=== PATIENT | female | born 1995 | race Caucasian/White ===

== ENCOUNTER 2023-12-21 07:30 | Inpatient (IN) ==
[2023-12-21] MEDS ORDERED: OXYTOCIN 30 UNITS/NSS 30 UNITS/500 ML BAG IV PRN (08:49)
--- NOTE | 2023-12-21 09:02 | History & Physical Report ---
Date of Service December 21, 2023 Assessment & Plan (1) Encounter for induction of labor: Present on Admission?: Yes Plan admit to L and D Regular diet x2 then NPO/IV Fluids labs pain meds including epidural as the pt desires Cytotec 25 mcg then consider Pitocin eventually , AROM to augment labor Admission and Anticipated Discharge Date Admission Date: December 21, 2023 History of Present Illness Chief Complaint: pt 28 yr old G1 IUP at 40 weeks 4 days came in for induction of labor for postdate . pt denies regular uterine contractions, vaginal bleeding, leaking of fluid per vagina etc. Reports good movement. Primary Care Provider: Nadira Rojas Allergies Allergy/AdvReac Type Severity Reaction Status Date / Time No Known Allergies Allergy Verified 12/21/23 08:57 Home Medications Medication Instructions Recorded Confirmed Type omega-3 fatty acids 1,000 mg 1,000 mg PO DAILY 04/18/23 12/21/23 History capsule vit no.95-ferrous 1 tab PO DAILY 04/18/23 12/21/23 History fumarate 28 mg-folic acid 800 mcg tablet () Patient History Medical History No known health problems Surgical History No history of previous surgery No history of previous surgery Social History Smoking Status: Never smoker Hx Alcohol Use: No Hx Substance Use: No Preferred Language: Azeri Dean Of Student Services Required: No Beliefs That Will Affect Care: None marital status: marital status details: Sterling Grey Current Living Situation: Spouse current occupational status: employed 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 Feels Safe at Home: Yes Safety Concerns: Feels Safe At This Time Assistive Devices: None Review of Systems All systems reviewed & are unremarkable except as noted in HPI & below as per Subjective / HPI as per Subjective / HPI as per Subjective / HPI as per Subjective / HPI Physical Exam Constitutional: WD/WN, vitals as above Respiratory: normal respiratory effort, lungs clear to auscultation Cardiovascular: RRR, no murmur, no edema Gastrointestinal (Abdomen): normal bowel sounds, soft, nontender, no hepatosplenomegaly Skin: no rashes, warm and dry Psychiatric: A+Ox3, euthymic affect Genitourinary: no vaginal lesions, no adnexal mass Speculum/Bimanual Exam: normal appearance of the vagina Results & Data Vital Signs (Past 12 Hours) Vital Signs Temp Pulse Resp BP 12/21/23 08:01 37.0 C 18 12/21/23 07:52 85 118/75 Monitoring External Monitor 140s, Good variability, positive accelerations Tocodynamometer irregular uterine contractions Supervising Physician Co-Signing Physician Notes Digna PEDERSEN
[2023-12-21] MEDS: miSOPROStoL 25 MCG TAB PO SCH (09:24)
[2023-12-21 09:31] LABS: Hematocrit (blood only) 40.1 % (37.0-47.0); Hemoglobin 12.8 g/dl (12.0-16.0); Mean Corpuscular Hemoglobin 26.8 pg (25.0-34.0); Mean Corpuscular Hgb Conc 31.9 g/dL (32.0-36.0); Mean Corpuscular Volume 83.9 fL (80.0-100.0); Mean Platelet Volume 9.9 fL (9.4-12.4); Platelet Count 217 K/uL (130-400); RDW Coefficient of Variation 14.2 % (11.5-14.5); RDW Standard Deviation 43.5 fL (36.4-46.3); Red Blood Count 4.78 M/uL (4.20-5.40); White Blood Count 11.43 K/ul (4.8-10.8)
--- OUTSIDE RECORDS SUMMARY | 2023-12-21 11:53 | External Medical Summary | Summary of Care ---
Author Name Unknown Organization [facility] Address [address] [facility] [place] [address] Phone [phone] Care Team Providers Care Fretted String Instrument Repairer Name Role Phone Unavailable Primary Care Provider Unavailabl e Reason for Visit * Reason Comments Return Visit Encounter Details Date Type Department Care Team (Late st Contact Info) Description 12/14/2023 4:30 PM EDT Office Visit Gynecology/Obstetric s Marycruz Christiansen [address] [place] [phone] Luz Maria Espino PA-C [address] [place] [phone] Supervision of other normal , antepartum* Allergies No known active allergiesdocumented as of this encounter (statuses as of 12/14/2023) Medications Medication Sig Dispensed Refills Start Date End Date Status 28-0.8 MG Oral Tablet Take by mouth. Active [place] [facility] Oral Tablet Chewable Take by mouth. Active documented as of this encounter (statuses as of 12/14/2023) Active Problems Problem Noted Date Diagnosed Date Supervision of other normal , antepartu m 05/11/2023 Estimated Date of Delivery Comme nts Yes 12/17/2023 Based on last me nstrual period of 03/12/2023 documented as of this encounter (statuses as of 12/14/2023) Immunizations Name Administration Dates Next Due Seasonal Influenza, PF, 6 M & above, IM , (FluLaval or Fluzone) 12/25/2019 Seasonal Influenza, Trivalent, (IIV3), PF, (Fluz one) 12/01/2023 TDAP, Age 7 and older, IM (Adacel) 09/26/2023 documented as of this encounter Social History Tobacco Use Types Packs/Day Years Used Date Smoking Tobacco: Never Smokeless Tobacco: Never Alcohol Use Standard Drinks/Week Comments Not Currently 0 (1 standard drink = 0.6 oz pur e alcohol) occ PHQ-2 Answer Date Recorded PHQ Adult Total Score 0 04/01/2020 Hunger Vital Sign Answer Date Recorded Within the past 12 months, y ou worried that your food would run out before you got the money to buy more. Never true 09/26/19 24 Within the past 12 months, t he food you bought just didn't last and you didn't have money to get more. Never true 09/26/2023 [place] Depression Scale Answer Date Recorded [place] Depression Scale Total 1 12/01/2023 The thought of harming myself has occurred to me . Never 12/01/2023 Childcare Answer Date Recorded Do you feel overwhelmed with taking care of a child, family member or friend? No 09/26/2023 Does your family need help f inding childcare? (Household - for ages 0-17 years) Not on file 09/26/2023 Clothing Answer Date Recorded Have you been unable to get clothing when it was really needed? No 09/26/2023 Is your family able to get c lothes or diapers when needed? (Household - for ages 0-17 years) Not on file 09/26/2023 Personal Safety Answer Date Recorded Do you feel unsafe or have concerns for your saf ety? No 09/26/2023 Do you have concerns for you r family's safety? (Household - for ages 0-17 years) Not on file 09/26/2023 Utilities Answer Date Recorded Do you have trouble paying y our heating, water, or electric bill? No 09/26/2023 Is your family able to pay t he heat, water, or electric bill? (Household - for ages 0-17 years) Not on file 09/26/2023 Does your family have access to good internet? (Household - for ages 0-17 years) Not on file 09/26/2023 Employment Status Answer Date Recorded Are you unemployed or without regular income? No 09/26/2023 Does the household have a re gular source of income? (Household - for ages 0-17 years) Not on file 09/26/2023 Social Connections Answer Date Recorded How often do you feel lonely or isolated from th ose around you? Never 09/26/2023 Financial Resource Strain Answer Date R ecorded Do you have any trouble payi ng for your medications, or do you think you might in the future? No 09/26/2023 Does your family have troubl e paying for medicine? (Household - for ages 0-17 years) Not on file 09/26/2023 Transportation Needs Answer Date Record ed Do you have trouble getting a ride to medical visits or work? (Adult - for ages 18 years and over) Not on file 09/26/2023 Does your family have a hard time getting a ride to doctors visits? (Household - for ages 0-17 years) Not on file 09/26/2023 Has lack of transportation k ept you from medical appointments, meetings, work, or from getting things needed for daily living? Check all that apply. No 09/26/2023 Do you (or your family) have trouble finding or paying for a ride (transportation)? (Household - for ages 0-17 years) Not on file 09/26/2023 Housing Stability Answer Date Recorded Do you currently live in a s helter or have no steady place to sleep at night? No 09/26/2023 Do you think you are at risk of becoming homeless? (Adult - for ages 18 years and over) Not on file 09/26/2023 Does your family worry about paying for your home or becoming homeless? (Household - for ages 0-17 years) Not on file 0 09/26/2023 Are you homeless or worried that you might be in the future? No 09/26/2023 Are you (or your family) deo eless or worried that you might be in the future? (Household - for ages 0-17 years) Not on file Food Insecurity Answer Date Recorded Do you need food for this week? No 09/26/2023 Are you able to get enough f ood for your family? (Household - for ages 0-17 years) Not on file 09/26/2023 Does your family need food t his week? (Household - for ages 0-17 years) Not on file 09/26/2023 Do you always have enough fo od for your family? (Household - for ages 0-17 years) Not on file 09/26/2023 Estimated Date of Delivery Comme nts Yes 12/17/2023 Based on last me nstrual period of 03/12/2023 Sex and Gender Information Value Date Recorded Sex Assigned at Female 04/04/2023 11:36 AM EST Gender Identity Female 04/04/2023 11:36 AM EST Sexual Orientation Straight 04/04/2023 11 :36 AM EST Job Start Date Occupation Industry Not on file Not on file Not on file documented as of this encounter Last Filed Vital Signs Vital Sign Reading Time Taken Comments Blood Pressure 116/82 12/14/2023 4:20 PM EDT Pulse - - Temperature - - Respiratory Rate - - Oxygen Saturation - - Inhaled Oxygen Concentration - - Weight - - Height 170.2 cm (5' 7") 12/14/2023 4:20 PM EDT Body Mass Index - - documented in this encounter Progress Notes * Luz Maria Espino PA-C - 12/14/2023 4:26 PM EDT 39w4d Called in 2 days d/t concerns for decreased FM. Sent to L&D. Pt states reactive NST baby moving. Sent home. Pt states baby moving normally since. No further concerns for decreased FM. Denies LOF, VB. Having some menstrual like cramping. No timing or regularity. Politely declines cervical check. Labor precautions RTC in 1 week Luz Maria Espino PA-C documented in this encounter Nursing Notes * Laura Anders LPN - 12/14/2023 4:20 PM EDT 39w4d Denies concerns. documented in this encounter Plan of Treatment Health Maintenance Due Date Last Done Comments Hepatitis B Vaccine (1 of 3 - 19+ 3-dose series) 02/10/2015 Pap Smear 02/10/2017 Depression Screening 04/01/2021 04/01/2020 COVID-19 Vaccine (3 - season) 2023 06/19/2020, 05/15/2020 DTap/Tdap Vaccines (2 - Td or Tdap) 09/25/2033 09/26/2023 Gonorrhea / Chlamydia Screen Discontinued 05/11/2023, 01/08/2021 Influenza Vaccine (FLU shot) Completed 12/01/2023, 12/25/2019, 12/25/2019, Additional history exists HPV (Gardasil) Vaccine Aged Out No lo nger eligible based on patient's age to complete this topic MENINGOCOCCAL (MENACTRA/MENVEO) Aged Out No longer eligible based on patient's age to complete this topic Pneumococcal Vaccine: Pediatrics (0 to 5 Years) and At-Risk Patients (6 to 64 Years) Aged Out No longer eligible based on patient's age to complete this topic documented as of this encounter Medical Devices Not on filedocumented as of this encounter Visit Diagnoses Diagnosis Supervision of other normal , antepartum- Primary documented in this encounter
--- OUTSIDE RECORDS SUMMARY | 2023-12-21 11:53 | External Medical Summary | Summary of Care ---
Author Name Unknown Organization [facility] Address [address] [facility] [place] [address] Phone [phone] Care Team Providers Care Lieutenant General Name Role Phone Unavailable Primary Care Provider Unavailabl e Reason for Visit * Reason Comments Return Visit Encounter Details Date Type Department Care Team (Late st Contact Info) Description 12/18/2023 11:00 AM EDT Office Visit Gynecology/Obstetric s [facility] [address] [place] [phone] Jodi Gonzales CRNP [address] [place] [phone] Christians[place], Non Stress Tests [place] [address] [place] [phone] Supervision of other normal , antepartum* Allergies No known active allergiesdocumented as of this encounter (statuses as of 12/18/2023) Medications Medication Sig Dispensed Refills Start Date End Date Status 28-0.8 MG Oral Tablet Take by mouth. Active [place] [facility] Oral Tablet Chewable Take by mouth. Active documented as of this encounter (statuses as of 12/18/2023) Active Problems Problem Noted Date Diagnosed Date Supervision of other normal , antepartu m 05/11/2023 Estimated Date of Delivery Comme nts Yes 12/17/2023 Based on last me nstrual period of 03/12/2023 documented as of this encounter (statuses as of 12/18/2023) Immunizations Name Administration Dates Next Due Seasonal [...] money to get more. Never true 09/26/2023 [place] Depression Scale Answer Date Recorded [place] Depression Scale Total 1 12/01/2023 The thought [...] Sign Reading Time Taken Comments Blood Pressure 108/70 12/18/2023 11:08 AM EDT Pulse - - Temperature - - Respiratory Rate - - Oxygen Saturation - - Inhaled Oxygen Concentration - - Weight 99.3 kg (218 lb 14.4 oz) 024 11:08 AM EDT Height - - Body Mass Index 34.28 12/14/2023 4:20 PM EDT documented in this encounter Progress Notes * Jodi Gonzales CRNP - 12/18/2023 11:20 AM EDT 40w1d No concerns. Asking if IOL can be moved to from Monday, as she doesn't want to worry aboutgetting bumped to Monday. There is availability at [facility] to move this to . Baby is active. Denies contractions, bleeding, LOF. Requesting cervical check. Dish Network Installer Documentation Provider requested co director. Name of co director: LIZETH Augustin * Carolann Dyer CMA - 12/18/2023 11:08 AM EDT 40w1d Requesting cervical check today. documented in this encounter Plan of Treatment Health Maintenance Due Date Last Done Comments Hepatitis B Vaccine (1 of 3 - 19+ 3-dose series) 02/10/2015 Pap Smear 02/10/2017 Depression Screening 04/01/2021 04/01/2020 COVID-19 Vaccine ( - 2023- season) 2023 06/19/2020, 05/15/2020 DTap/Tdap Vaccines (2 [...]
--- OUTSIDE RECORDS SUMMARY | 2023-12-21 11:53 | External Medical Summary | Summary of Care ---
Author Name Unknown Organization [facility] Address [address] [facility] [place] [address] Phone [phone] Care Team Providers Care Recruiting Administrator Name Role Phone Unavailable Primary Care Provider Unavailabl e Reason for Visit * Reason Comments Return Visit Encounter Details Date Type Department Care Team (Late st Contact Info) Description 12/18/2023 11:00 AM EDT Office Visit Gynecology/Obstetric s [facility] [address] [place] [phone] Jodi Gonzales CRNP [address] [place] [phone] Christiansen, Non Stress Tests [place] [address] [place] [phone] Supervision of other normal , antepartum* Allergies No known active allergiesdocumented as of this encounter (statuses as of 12/18/2023) Medications Medication Sig Dispensed Refills Start Date End Date Status 28-0.8 MG Oral Tablet Take by mouth. Active [place] [facility] Oral Tablet Chewable Take by mouth. [...] money to get more. Never true 09/26/2023 [place] Depression Scale Answer Date Recorded [place] Depression Scale Total 1 12/01/2023 The thought [...] bumped to Monday. There is availability at [facility] to move this to . Baby is active. Denies contractions, bleeding, LOF. Requesting cervical check. Manager Reimbursement Documentation Provider requested mold capper helper. Name of mold capper helper: LIZETH Augustin * Carolann Dyer CMA - [...]
--- OUTSIDE RECORDS SUMMARY | 2023-12-21 11:53 | External Medical Summary | Summary of Care ---
Author Name Unknown Organization [facility] Address [address] [facility] [place] [address] Phone [phone] Care Team Providers Care Text Transcriber Name Role Phone Unavailable Primary Care Provider Unavailabl e Reason for Visit * Reason Onset Date Comments Decreased Movement 12/12/2023 Review with osmin Change in Bowel Movements 12/12/2023 Encounter Details Date Type Department Care Team (Late st Contact Info) Description 12/12/2023 Telephone Gynecology/Obstetrics [facility] [address] [place] [phone] Sami Easton MD [address] [place] [phone] Decreased Movement (Review with owus... Allergies No known active allergiesdocumented as of this encounter (statuses as of 12/12/2023) Medications Medication Sig Dispensed Refills Start Date End Date Status 28-0.8 MG Oral Tablet Take by mouth. Active [place] [facility] Oral Tablet Chewable Take by mouth. Active documented as of this encounter (statuses as of 12/12/2023) Active Problems Problem Noted Date Diagnosed Date Supervision of other normal , antepartu m 05/11/2023 Estimated Date of Delivery Comme nts Yes 12/17/2023 Based on last me nstrual period of 03/12/2023 documented as of this encounter (statuses as of 12/12/2023) Immunizations Name Administration Dates Next Due Seasonal [...] money to get more. Never true 09/26/2023 [place] Depression Scale Answer Date Recorded [place] Depression Scale Total 1 12/01/2023 The thought [...] on file documented as of this encounter Miscellaneous Notes * Telephone Encounter - Akanksha Jordan LPN - 12/12/2023 2:02 PM EDT Spoke with dr easton and he said that's fine if pt wants to go to L&D for NST. Pt aware. L&Daware * Telephone Encounter - Akanksha Jordan LPN - 12/12/2023 12:48 PM EDT Pt called in with feeling of decreased movements. 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 Pt denies any vb, lof or ctxs. 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 I told pt I would need to reach out to osmin and call her back. documented in this encounter Plan of Treatment Upcoming Encounters Date Type Department Care Team (Late st Contact Info) Description 12/14/2023 4:30 PM EDT Office Visit Gynecology/Obstetrics Marycruz Christiansen [address] [place] [phone] Luz Maria Espino PA-C [address] [place] [phone] Health Maintenance Due Date Last Done Comments Hepatitis B Vaccine (1 of 3 - 19+ 3-dose series) 02/10/2015 Pap Smear 02/10/2017 Depression Screening 04/01/2021 04/01/2020 COVID-19 Vaccine (3 - 2023-25 season) 2023 06/19/2020, 05/15/2020 DTap/Tdap Vaccines (2 [...]
[2023-12-21] MEDS: miSOPROStoL 25 MCG TAB PO ONE (13:52)
--- NOTE | 2023-12-22 05:40 | Obstetrical Progress Note ---
Date of Service December 22, 2023 Assessment & Plan (1) Encounter for induction of labor: Plan start Pitocin if needed to augment labor pain meds including epidural as the pt desires Admission and Anticipated Discharge Date Admission Date: December 21, 2023 Physical Exam Constitutional: WD/WN, vitals as above Genitourinary: OB Exam Monitor Tracing: + external FHT monitor used, + category I and + normal FHT variability 140, good variability, positive accelera tions q 3 to 5 min Results & Data Vital Signs (Past 12 Hours) Vital Signs Temp Pulse Resp BP 12/22/23 02:47 36.8 C 74 18 116/63 12/21/23 22:27 36.6 C 83 18 118/72 12/21/23 18:57 81 122/77
[2023-12-22] MEDS: ONDANSETRON INJ 2 MG/ML 2 ML VIAL IV PRN (06:34)
[2023-12-22] MEDS: LACTATED RINGER'S 1,000 ML IV PRN (08:05)
[2023-12-22] MEDS: LIDOCAINE 2%/EPINEPHRINE 1:200,000 20 ML PF ONE (08:39)
[2023-12-22] MEDS: ePHEDrine sulfate 50 MG/ML AMP ONE (08:45)
[2023-12-22] MEDS: fentANYL 2 MCG/ML BUPIVacaine 0.125%-NSS 100ML BAG ONE (08:46)
--- NOTE | 2023-12-22 09:35 | Anesthesiology Consultation ---
Date of Service December 22, 2023 Assessment & Plan Chart Review Chart Review: Acceptable Risk for Labor Epidural Consults Requested none History Height/Weight Height: 5 ft 7 in Weight: 98.883 kg Allergies Allergy/AdvReac Type Severity Reaction Status Date / Time No Known Allergies Allergy Verified 12/21/23 08:57 Medications Home Medications Medication Instructions Recorded Confirmed Last Taken omega-3 fatty acids 1,000 mg 1,000 mg PO DAILY 04/18/23 12/21/23 12/19/23 capsule vit no.95-ferrous 1 tab PO DAILY 04/18/23 12/21/23 12/19/23 fumarate 28 mg-folic acid 800 mcg tablet () Active Medications Generic Name Dose Route Start Last Admin Trade Name Freq PRN Reason Stop Dose Admin Lactated Ringer's 1,000 mls @ 125 mls/hr 12/21/23 08:49 12/22/23 08:57 Lr IV 12/23/23 08:48 125 mls/hr .Q8H PRN Administration L&D Protocol Protocol Ondansetron HCl 4 mg 12/22/23 06:24 12/22/23 06:34 Ondansetron Inj 2 Mg/Ml 2 Ml Vial IV 01/21/24 06:23 4 mg Q6H PRN Administration Nausea And Vomiting Past Medical History Medical History No known health problems Past Surgical History Surgical History No history of previous surgery No history of previous surgery Social History Smoking Status: Never smoker Hx Alcohol Use: No Hx Substance Use: No substance use type: does not use Physical Exam Vital Signs Last Vital Signs Temp 36.9 C 12/22/23 09:00 Pulse 85 12/22/23 09:31 Resp 20 12/22/23 09:00 BP 102/57 L 12/22/23 09:25 Pulse Ox 99 12/22/23 09:31 Testing Laboratory Results 12/21/23 09:10
[2023-12-22] MEDS ORDERED: fentaNYL citrate PF 100 MCG/2 ML VIAL EPI PRN (09:37)
[2023-12-22] MEDS ORDERED: SODIUM CHLORIDE 0.9% PF INJ 10 ML VIAL EPI PRN (09:37)
[2023-12-22] MEDS ORDERED: diphenhydrAMINE 50 MG/ML VIAL IV PRN (09:37)
[2023-12-22] MEDS ORDERED: NALOXONE HCL 1 MG in SODIUM CHLORIDE 0.9% 1,000 ML IV PRN (09:37)
[2023-12-22] MEDS ORDERED: ePHEDrine sulfate 50 MG/ML AMP IV PRN (09:37)
[2023-12-22] MEDS ORDERED: ROPIVACAINE 0.5% PF 5 MG/ML 20 ML VIAL EPI PRN (09:37)
[2023-12-22] MEDS ORDERED: BUPIVACAINE 0.25% PF 30 ML VIAL EPI PRN (09:37)
[2023-12-22] MEDS ORDERED: LIDOCAINE 2% MPF LOCAL 5 ML VIAL EPI PRN (09:37)
[2023-12-22] MEDS ORDERED: NALOXONE HCL 0.4 MG/1 ML VIAL/CARP IV PRN (09:37)
[2023-12-22] MEDS ORDERED: NALBUPHINE HCL INJ 10 MG/ML AMP IV PRN (09:37)
[2023-12-22] MEDS: SODIUM CHLORIDE 0.9% PF INJ 10 ML VIAL ONE (10:58)
[2023-12-22] MEDS: BUPIVACAINE 0.25% PF 30 ML VIAL ONE (10:58)
[2023-12-22] MEDS: fentaNYL citrate PF 100 MCG/2 ML VIAL ONE (10:58)
[2023-12-22] MEDS: fentaNYL citrate PF 100 MCG/2 ML VIAL EPI STA (10:59)
[2023-12-22] MEDS: LIDOCAINE 2%/EPINEPHRINE 1:200,000 20 ML PF EPI STA (10:59)
[2023-12-22] MEDS: SODIUM CHLORIDE 0.9% PF INJ 10 ML VIAL EPI STA (10:59)
[2023-12-22] MEDS: BUPIVACAINE 0.25% PF 30 ML VIAL EPI STA (10:59)
[2023-12-22] MEDS: OXYTOCIN 30 UNITS/NSS 30 UNITS/500 ML BAG IV PRN (11:23)
[2023-12-22] MEDS: fentANYL 2 MCG/ML BUPIVacaine 0.125%-NSS 100ML BAG EPI PRN (15:58)
[2023-12-22] MEDS: LIDOCAINE 1% LOCAL 20 ML VIAL INFIL PRN (16:30)
[2023-12-22] MEDS ORDERED: bisacodyL 10 MG SUPP PR PRN (16:47)
[2023-12-22] MEDS ORDERED: OXYTOCIN 30 UNITS/NSS 30 UNITS/500 ML BAG IV PRN (16:47)
[2023-12-22] MEDS ORDERED: HYDROCORTISONE ACETATE 25 MG SUPP PR PRN (16:47)
--- NOTE | 2023-12-22 16:50 | Delivery Summary ---
Vaginal Delivery Summary Date of Service December 22, 2023 Vaginal Delivery Summary DELIVERY NOTE Patient delivered a live male in left occiput anterior presentation there was tight nuchal cord which was cut and reduced reduced. Infant was delivered and placed on mother's abdomen Cord blood is obtained Cord gasses not obtained Meconium is absent Placenta is spontaneously delivered. Placenta appears grossly normal and has 3 vessel cord Inspection of the perineum showed a second-degree midline laceration. Laceration is repaired in layers with 2-0 Vicryl in layers Rectal exam post repair showed good sphincter tone no sutures palpated in the rectum. Quantitative blood loss is 116 cc per Infants weight and scores are in the pediatric record Mother and baby are stable in in the recovery
[2023-12-22] MEDS: DIPHTHER/TETAN/PERTUS Vaccine (Tdap, Adol/Adult) 0.5mL IM ONE (17:25)
[2023-12-22] MEDS: IBUPROFEN 600 MG TAB PO PRN (18:01)
[2023-12-22] MEDS: BENZOCAINE 20% SPRY 85 APPLN/85 GM CAN EXT PRN (19:04)
--- NOTE | 2023-12-22 19:30 | Anesthesia Procedure Note ---
Date of Service December 22, 2023 Anesthesia Post Epidural Note Vital Signs Vital Signs: Temp Pulse Resp BP Pulse Ox O2 Del Method 36.5 C 100 H 18 118/53 L 98 Room Air 12/22/23 14:45 12/22/23 18:57 12/22/23 19:00 12/22/23 18:57 12/22/23 16:11 12/22/23 19:00 Pain Intensity Bilateral Lower Abdomen: Pain Intensity: 3 Notes Mental Status: alert / awake / arousable Nausea / Vomiting: adequately controlled Pain: adequately controlled Airway Patency, RR, SpO2: stable & adequate BP & HR: stable & adequate Hydration State: stable & adequate Neuraxial Anesthesia: was administered and sensory block is resolving Anesthetic Complications: no major complications apparent and Pt Satisfied with anesthetic care Epidural: Removed without complications and With tip intact
[2023-12-22] MEDS: DOCUSATE SODIUM 100 MG CAP PO SCH (20:31)
[2023-12-22] MEDS: ACETAMINOPHEN 325 MG TAB PO PRN (23:53)
[2023-12-23 06:19] LABS: Hematocrit (blood only) 33.5 % (37.0-47.0); Mean Corpuscular Hemoglobin 26.8 pg (25.0-34.0); Mean Corpuscular Hgb Conc 32.8 g/dL (32.0-36.0); Mean Corpuscular Volume 81.5 fL (80.0-100.0); Mean Platelet Volume 9.8 fL (9.4-12.4); Platelet Count 196 K/uL (130-400); RDW Coefficient of Variation 14.1 % (11.5-14.5); RDW Standard Deviation 41.3 fL (36.4-46.3); Red Blood Count 4.11 M/uL (4.20-5.40)
[2023-12-23] MEDS: PRENATAL VITAMIN 1 TAB PO SCH (08:19)
--- NOTE | 2023-12-23 09:26 | Obstetrical Progress Note ---
Date of Service December 23, 2023 Assessment & Plan (1) Encounter for induction of labor: Pt doing well No complaints Pt wishes to be discharged home later PM Subjective Ambulation: ambulating normally Voiding: no voiding problems Passing Gas:: Yes Diet Tolerance:: regular diet Lochia:: Small Feeding Type:: breast feeding Review of Systems All systems reviewed & are unremarkable except as noted in HPI & below Physical Exam Constitutional WD/WN, vitals as above well developed and well nourished Eyes PERRL, conjunctivae normal, anicteric sclerae Neck trachea midline, no thyromegaly Respiratory normal respiratory effort, lungs clear to auscultation Auscultation: no crackles, no rales and no wheezes Cardiovascular RRR, no murmur, no edema Gastrointestinal (Abdomen) normal bowel sounds, soft, nontender, no hepatosplenomegaly Uterus is below umbilicus Musculoskeletal no cyanosis or clubbing, extremities motor strength 5/5 Skin no rashes, warm and dry Neurologic patellar DTR's 2+ bilat, sensation intact Psychiatric A+Ox3, euthymic affect Genitourinary normal external appearance Results & Data Vital Signs (Past 12 Hours) Vital Signs Temp Pulse Resp BP Pulse Ox O2 Del Method 12/23/23 07:45 36.6 C 80 16 98/61 L 98 Room Air 12/23/23 03:37 36.5 C 94 H 18 104/69 12/22/23 23:50 36.6 C 82 18 99/64 L
[2023-12-23 17:03] VITALS: BP 94/57; PULSE 80; RESP 16; TEMP 98.4; O2SAT 99
[2023-12-23] MEDS ORDERED: bisacodyL 5 MG TABEC PO SCH (20:00)
== END 2023-12-23 17:50 | disposition home or self-care (01) | DRG 807 ==
LOC: 4S1 07:30 → 4E2 12-22 19:15